=== PATIENT | male | born 1950 | race Caucasian/White ===

== ENCOUNTER 2020-09-10 07:31 | Inpatient (IN) ==
--- NOTE | 2020-08-25 13:02 | PAT Medication Instructions ---
Medication Instructions Date of Service August 25, 2020 Home Medications [place] Plus 1 cap PO HS aspirin 325 mg PO HS coQ10 (ubiquinol) 200 mg PO HS diclofenac sodium 75 mg PO DAILY PRN levothyroxine 112 mcg PO QAM Centrum Silver Men] 1 tab PO HS ASK your surgeon for instructions diclofenac sodium 75 mg PO DAILY PRN ASK your prescriber and surgeon aspirin 325 mg PO HS STOP taking 2 weeks before surgery (or as soon as possible if surgery is within 2 weeks) [place] Plus 1 cap PO HS coQ10 (ubiquinol) 200 mg PO HS Take morning of surgery With a small sip of water, OTHERWISE NOTHING TO EAT OR DRINK AFTER MIDNIGHT: levothyroxine 112 mcg PO QAM Take evening before surgery Centrum Silver Men] 1 tab PO HS Other Notes If you have any questions please call us at [phone] or [phone] or [phone] or [phone]
--- NOTE | 2020-08-26 12:35 | Anesthesiology Consultation ---
Date of Service August 26, 2020 Assessment & Plan (1) Encounter for pre-operative examination: - Per assessment on 08/26: Travel screen- Lives in [facility]. Travel to [facility] for shopping. No known COVID-19 positive contacts or cu rrent COVID-19 related symptoms. Surgeon arranging preop COVID testing. Awaiting results. - Awaiting surgeon-ordered PCP clearance (Dr. Maye Swift). - Preop EKG: New onset a. fib with RVR, consider anterolateral ischemia on preop EKG at PAT visit 08/26. Per patient, possible remote hx of a. fib that was not found on follow-up event monitor therefore no further cardiac follow-up done. Patient was asymptomatic. He was transported to [facility] ER for further evaluation. Patient given diltiazem drip. Per ER note, "Given his rapid improvement with the diltiazem and his asymptomatic nature, discussed with patient option of further observation here versus discharge home. He is from out of the area and wished to go home." He was discharged with rx for diltiazem and Eliquis. PCP and surgeon's office made aware. Surgeon's office made aware- Per PAT mitigation supervisor (Natalee), surgeon's office states they will arrange preop cardiology evaluation (in order for spinal anesthesia, will need to see if okay to discontinue Eliquis 72 hours prior to surgery from prescriber's perspective after they are further evaluated). Chart Review Chart Review: Patient seen in Pre Admission Testing Teaching & Discussion Pre-Anesthesia Teaching/Discussion Notes: Instructed NPO after midnight before surgery,except medications with 15 cc of water. Medication instructions provide d according to the PAT guidelines. History Surgery Operation Date: 09/08/20 10:30 Proposed Procedures p L3-L4 Decompression Fusion, L4-L5 Hardware Removal, Spinal Cord Monitoring - Todd Mcginnis, Height/Weight Height: 5 ft 9 in Weight: 100.4 kg Allergies Allergy/AdvReac Type Severity Reaction Status Date / Time No Known Allergies Allergy Verified 08/26/20 15:31 Medications Home Medications Medication Instructions Recorded Confirmed Last Taken coQ10 (ubiquinol) 200 mg PO QPM 08/17/20 08/26/20 Unknown levothyroxine 112 mcg PO QAM 08/17/20 08/26/20 Unknown knggdygb-dev-FV-lycopen-lutein 1 tab PO QPM 08/17/20 08/26/20 Unknown [Centrum Silver Men] apixaban [Eliquis] 5 mg PO BID #60 tab 08/26/20 Unknown diltiazem HCl [Cardizem] 60 mg PO Q8H 30 Days #90 tab 08/26/20 Unknown omega-3 fatty acids [[place] 3] 0 mg PO QPM 08/26/20 08/26/20 Unknown Past Medical History Medical History History of high blood pressure Leaky heart valve ? remote hx, no recent echo, no murmur on PAT exam Obesity Osteoarthritis Sleep apnea no device Exercise / Class Metabolic Activity II 4-5 Yardwork/Stairs/Walk up hill Past Family History Family History Brother Family history of esophageal cancer Past Surgical History Surgical History History of colonoscopy History of esophagogastroduodenoscopy (EGD) History of tooth extraction Hx of vasectomy Past Anesthesia History No Hx of Anesthesia Complications and No Family Hx of Anesthesia Complications History of PONV No Hx of PONV and No Hx of Motion Sickness Social History Smoking Status: Never smoker Do You Dip or Chew Tobacco: No Hx Alcohol Use: Yes Alcohol type: beer alcohol intake frequency: a few times a week substance use type: does not use Review of Systems Patient denies chest pain, shortness of breath, dyspnea on exertion, fever, chills, wheezing, palpitations. Physical Exam Vital Signs VITALS BP 144/100 (manual repeat 138/92) P 93- low 100's-110's on monitor TEMP 98.1 SP02 96%RA RESP 16 PHYSICAL Full neck and c-spine range of motion. Full TMJ range of motion. TMD 2.5 finger breaths Mallampati Score 3 Dentition: full dentures upper lower Lungs: clear throughout to auscultation Cardiac: heart rhythm irregular, no murmurs noted Spine: normal Carotid arteries: negative bruit Extremities: no edema Testing Laboratory Results 08/26/20 12:54 08/26/20 12:54 PT 10.6 Seconds (9.0-12.0) 08/26/20 12:54 INR 1.0 (0.9-1.1) 08/26/20 12:54 APTT 28.5 Seconds (21.0-31.0) 08/26/20 12:54 Urine Color Yellow 08/26/20 12:54 Urine Appearance Clear (Clear) 08/26/20 12:54 Urine pH 5.5 (4.5-7.5) 08/26/20 12:54 Ur Specific [place] 1.018 (1.000-1.030) 08/26/20 12:54 Urine Protein Negative (Negative) 08/26/20 12:54 Urine Glucose (UA) Negative (Negative) 08/26/20 12:54 Urine Ketones Negative (Negative) 08/26/20 12:54 Urine Nitrite Negative (Negative) 08/26/20 12:54 Ur Leukocyte Esterase Negative (Negative) 08/26/20 12:54 Blood Type O Negative 08/26/20 12:54 Antibody Screen NEGATIVE 08/26/20 12:54 08/26/20 SODIUM 138 POTASSIUM 4.1 CHLORIDE 107 CO2 27 BUN 15 CREATININE 1.23 GLUCOSE 97 Electrocardiogram Date: 08/26/20 A. fib with RVR at 117bpm. ST/TWA, consider lateral ischemia. unconfirmed report. Chest X-Ray Date: 08/26/20 Findings: + NAD FINDINGS: There is enlargement of the cardiac silhouette. No pneumothorax, pleural effusion, airspace consolidation or overt pulmonary edema. Mild eventration of the right hemidiaphragm. Bones appear grossly intact. IMPRESSION: No acute process.
[2020-08-26 13:25] LABS: Basophils # (auto) 0.03 K/uL (0-0.2); Basophils % (auto) 0.4 %; Eosinophils # (auto) 0.16 K/uL (0-0.5); Eosinophils % (auto) 2.3 %; Hemoglobin 17.3 g/dL (14.0-18.0); Immature Granulocytes # (auto) 0.01 K/uL (0.00-0.02); Immature Granulocytes % (auto) 0.1 %; Lymphocytes # (auto) 2.06 K/uL (1.2-3.4); Lymphocytes % (auto) 29.3 %; Mean Corpuscular Hemoglobin 32.8 pg (25-34); Mean Corpuscular Hgb Conc 35.3 g/dL (32-36); Mean Platelet Volume 11.9 fL (7.4-10.4); Monocytes # (auto) 0.57 K/uL (0.11-0.59); Monocytes % (auto) 8.1 %; Neutrophils % (auto) 59.8 %; Platelet Count 219 K/uL (130-400); RDW Coefficient of Variation 13.5 % (11.5-14.5); RDW Standard Deviation 45.7 fL (36.4-46.3); Red Blood Count 5.27 M/uL (4.7-6.1); White Blood Count 7.03 K/uL (4.8-10.8)
[2020-08-26 13:26] LABS: Appearance Urine Clear (Clear); Bilirubin Urine Negative (Negative); Blood Urine Negative (Negative); Color Urine Yellow; Glucose Urine UA Negative (Negative); Ketones Urine Negative (Negative); Leukocyte Esterase Urine Negative (Negative); Nitrite Urine Negative (Negative); Protein Urine Negative (Negative); Specific Gravity Urine 1.018 (1.000-1.030); Urobilinogen Urine Negative (Negative); pH Urine 5.5 (4.5-7.5)
[2020-08-26 13:36] LABS: Partial Thromboplastin Time 28.5 Seconds (21.0-31.0); Prothrombin Time 10.6 Seconds (9.0-12.0)
[2020-08-26 15:43] LABS: BUN Creatinine Ratio 12.6 (10-20); Calcium 9.4 mg/dl (8.5-10.1); Creatinine Clr Calc Pharmacy 70.8 ml/min; Est GFR (African American) 74.8; Est GFR (Non-African American) 64.6; Potassium 4.6 mmol/L (3.5-5.1)
--- NOTE | 2020-08-26 17:59 | Electrocardiogram Report ---
Test Reason : Blood Pressure : / mmHG Vent. Rate : 109 BPM Atrial Rate : 115 BPM P-R Int : 000 ms QRS Dur : 088 ms QT Int : 322 ms P-R-T Axes : 000 025 -10 degrees QTc Int : 433 ms Atrial fibrillation with rapid ventricular response Abnormal ECG When compared with ECG of 25-MAY-2010 11:47, Atrial fibrillation has replaced Sinus rhythm ST now depressed in Anterolateral leads T wave inversion now evident in Anterior leads Confirmed by Vivek Tellez ([id number]) on 08/26/2020 5:59:04 PM Referred By: Todd Mcginnis Confirmed By:Nicolás Tellez
[~2020-09-10 07:31] MED LIST: ACETAMINOPHEN 500 MG TAB PO SCH; CeleBREX 200 MG CAP PO SCH; GABAPENTIN 300 MG CAP PO SCH; LR 15ML/HR IV SCH; ceFAZolin 2000MG 2,000 MG/15 ML SYR IV SCH
[2020-09-10] MEDS ORDERED: LIDOCAINE HCL 2% 2 ML VIAL/AMP(20MG/ML) INFIL ONE (08:30)
[2020-09-10] MEDS ORDERED: NEOSTIGMINE METHYLSULFATE 1 MG/ML 10ML VIAL ONE (08:30)
[2020-09-10] MEDS ORDERED: GLYCOPYRROLATE 0.2 MG/ML VIAL ONE ×2 (08:30→13:38)
[2020-09-10] MEDS ORDERED: ONDANSETRON INJ 2 MG/ML 2 ML VIAL ONE (08:30)
[2020-09-10] MEDS ORDERED: PROPOFOL IV EMULSION 10 MG/ML 20 ML VIAL IV ONE (08:30)
[2020-09-10] MEDS ORDERED: DEXAMETHASONE SOD INJ 4 MG/ML VIAL ONE (08:30)
[2020-09-10] MEDS ORDERED: fentaNYL citrate 100 MCG/2 ML VIAL ONE (08:31)
[2020-09-10] MEDS ORDERED: MIDAZOLAM HCL 1 MG/ML 2ML VIAL ONE (08:31)
--- NOTE | 2020-09-10 08:50 | History & Physical Bridge Note ---
Date of Service September 10, 2020 History & Physical Bridge Note I have examined the patient, reviewed the History & Physical and in the interval since the performance of the History & Physical I have noted the following changes of clinical significance: no changes noted
--- NOTE | 2020-09-10 08:51 | History & Physical Report ---
Date of Service September 10, 2020 Assessment & Plan (1) Neurogenic claudication due to lumbar spinal stenosis: Admission and Anticipated Discharge Date Admission Date: L3-L4 decompression fusion, L4-L5 hardware removal History of Present Illness Chief Complaint: Back and leg pain Primary Care Provider: Maye Gomez This is a 70-year-old male who presents with chronic persistent back and leg pain. Failing course of nonoperative care is here for surgical intervention. Allergies Allergy/AdvReac Type Severity Reaction Status Date / Time No Known Allergies Allergy Verified 09/10/20 08:14 Home Medications Home Medications Medication Instructions Recorded Confirmed Type coQ10 (ubiquinol) 200 mg PO QPM 08/17/20 09/10/20 History levothyroxine 112 mcg PO QAM 08/17/20 09/10/20 History ekdewvrk-diw-VX-lycopen-lutein 1 tab PO QPM 08/17/20 09/10/20 History [Centrum Silver Men] apixaban [Eliquis] 5 mg PO BID #60 tab 08/26/20 09/10/20 Rx diltiazem HCl [Cardizem] 60 mg PO Q8H 30 Days #90 tab 08/26/20 09/10/20 Rx omega-3 fatty acids [[place] 3] 0 mg PO QPM 08/26/20 09/10/20 History aspirin 325 mg PO DAILY 09/10/20 09/10/20 History Past Med/Surg History Medical History History of high blood pressure Leaky heart valve ? remote hx, no recent echo, no murmur on PAT exam Obesity Osteoarthritis Sleep apnea no device Surgical History History of colonoscopy History of esophagogastroduodenoscopy (EGD) History of tooth extraction Hx of vasectomy Family History Brother Family history of esophageal cancer Social History Smoking Status: Never smoker Second Hand Exposure: Yes (IN THE PAST); Do You Dip or Chew Tobacco: No; Tobacco Cessation Education Requested by Patient: No Hx Alcohol Use: Yes Alcohol type: beer Preferred Language: Bahraini Body Team Member Required: No Beliefs That Will Affect Care: None Current Living Situation: Spouse Feels Safe at Home: Yes Safety Concerns: Feels Safe At This Time Assistive Devices: Denture - Upper, Denture - Lower and Glasses Assistive Devices Comment: READING GLASSES Physical Exam Physical Exam: Patient is alert and oriented Heart regular rate and rhythm Lungs clear to auscultation Results & Data ([facility]) Vital Signs (Past 12 Hours) Vital Signs Temp Pulse Resp BP Pulse Ox 09/10/20 08:22 36.6 C 99 H 18 167/90 H 98
[2020-09-10] MEDS ORDERED: ePHEDrine sulfate 50 MG/ML AMP IV PRN (09:00)
[2020-09-10] MEDS ORDERED: ONDANSETRON INJ 2 MG/ML 2 ML VIAL IV PRN ×2 (09:00→13:36)
[2020-09-10] MEDS ORDERED: ATROPINE SULFATE 0.1 MG/ML 10ML SYR IV PRN (09:00)
[2020-09-10] MEDS ORDERED: BUPIVACAINE/EPINEPHRINE 0.25% 1:200,000 30 ML VIAL ONE (09:16)
[2020-09-10] MEDS ORDERED: BACITRACIN INJ 50,000 UNIT VIAL ONE ×2 (09:16)
[2020-09-10] MEDS ORDERED: PHENYLEPHRINE 100MCG/ML 5ML SYR ONE (10:27)
[2020-09-10] MEDS ORDERED: ePHEDrine sulfate 50 MG/ML SYR ONE (10:27)
[2020-09-10] MEDS ORDERED: ROCURONIUM BROMIDE 10 MG/ML 5 ML VIAL IV ONE (10:27)
[2020-09-10] MEDS ORDERED: FLOSEAL HEMOSTATIC MATRIX 10ML TOP ONE (10:29)
[2020-09-10] MEDS ORDERED: PHENYLEPHRINE HCL 10 MG/ML VIAL ONE (10:58)
--- NOTE | 2020-09-10 11:32 | Operative Report ---
Post Operative Report Pre & Post Diagnosis Operation Date: 09/08/20 12:40 <No data on this case meets the specified criteria> Operation Date: 09/10/20 09:05 Pre-Op Diagnosis: Lumbar spinal stenosis with neurogenic claudication Post-Op Diagnosis: Same I identified the patient and participated in the time-out.: Yes Procedure Operation Date: 09/08/20 12:40 <No data on this case meets the specified criteria> Operation Date: 09/10/20 09:05 Actual Procedures #1 removal of instrumentation L4-L5. #2 exploration of fusion L4-5 per #3 lumbar decompression bilateral medial facetectomies and foraminotomies L2-3 L3- 4. #4 posterior spinal fusion L3-4. #5 placement posterior instrumentation L3- 4. #6 interbody fusion L3-4 per #7 placement of peek cage 12 x 26 mm at L3-4. #8 placement locally harvested morselized autograft in the posterior lateral gutters. 9 placement infuse collagen sponge, master graft in the posterior lateral gutters and ostial amp and interbody space. Surgeon Todd Mcginnis, DO Injection Molder Kevan Vázquez Estimated Blood Loss 150 Findings See Below Patient is 5 foot 9 inches tall weighing over 99 kg a BMI in excess of 32. Patient's body habitus did add significant technical difficulty requiring her deepest retractors longus instruments in order to perform his procedure. This at least 25% increase in the operative time. Specimens None Indications This is a 70-year-old male who presents with above-mentioned diagnosis after failing extensive course of nonoperative care is here for surgical invention. Description of Procedure Patient was met with identified informed consent obtained. Patient was then taken to the operative suite underwent intubation placed in a prone position the [place] table top Mauro frame. All bony prominences well-padded eyes inspected to ensure no external pressure placed upon the. This point the lumbar spine is prepped and draped in a sterile fashion. Sharp dissection with the assistance of cartilage performed down to and exposing the lamina and transverse processes of L3 and instrumentation at L4-L5 bilaterally. And then proceeded move the hardware bilaterally explore the fusion mass noting it to be mature and intact. And then performed a complete laminectomy of L3 partial laminectomy of L2 including bilateral medial facetectomies and foraminotomies addressing severe spinal stenosis. Pedicle screws were then placed in L3 and L4 bilaterally with assistance of fluoroscopy and the proper sized stanley placed. By way of a transforaminal approach on the left complete discectomy was performed endplates curetted to subcortical bleeding bone and a 12 x 26 mm peek cage filled with osteobone graft tapped in position. The rods were then locked in final position bilaterally. The transverse processes of L3 and L4 were burred to subcortical any bone. Infuse collagen sponge master graft local autograft was placed in the posterior gutters. 15 round KEITH drain inserted. Incision was then closed with 1 Vicryl in the fascia 2-0 Vicryl subcutaneously and 4 Monocryl for final skin closure. Steri-Strip sterile dressings placed. Patient waken taken PACU stable condition. Please note spinal cord monitoring was utilized that the procedure no changes noted. Lastly Kevan Vázquez was present for the entire surgery involved in patient positioning complex portions of the surgery and fascial closure. I attest to the content of the Intraoperative Record and any orders documented therein. Any exceptions are noted below.
--- NOTE | 2020-09-10 11:56 | Fluoroscopy Report ---
FL lumbar spine 2-3V CLINICAL HISTORY: L3-L4 DECOMPRESSION AND FUSION L4-5 HW REMOVAL COMPARISON STUDY: 05/26/2010 FLUOROSCOPY TIME: 13 seconds. NUMBER OF FLUOROSCOPIC IMAGES: 2 FINDINGS: There is again evidence for an L4-5 discectomy and interbody fusion. There is now evidence for an L3-4 discectomy and interbody fusion. The L5 pedicle screws have been removed. L3 pedicle scre ws have been placed. IMPRESSION: 1. Postsurgical changes of L4-5 hardware removal 2. Postsurgical changes of an L3-4 spinal decompression and fusion with posterior pedicle screw fixat ion ACT 112: Negative or not required by law. Electronically signed by: Romain rAevalo M.D. 09/10/2020 11:55 AM
[2020-09-10] MEDS: fentaNYL citrate 100 MCG/2 ML VIAL IV PRN ×3 (12:02→12:13)
[2020-09-10] MEDS ORDERED: LARYING-O-JET KIT (LTA) ONE (12:04)
[2020-09-10] MEDS ORDERED: HYDROmorphone INJ 1 MG/ML SYRINGE ONE (12:12)
[2020-09-10] MEDS: HYDROmorphone INJ 1 MG/ML SYRINGE IV PRN ×4 (12:13→12:35)
--- NOTE | 2020-09-10 12:38 | Anesthesiology Progress Note ---
Date of Service September 10, 2020 Anesthesia Post Procedure Vital Signs Vital Signs: Temp Pulse Pulse Resp BP BP Pulse Ox 09/10/20 12:35 98.1 F 76 16 110/82 96 09/10/20 12:25 80 16 119/78 95 09/10/20 12:15 69 16 134/86 99 09/10/20 12:05 80 16 123/88 99 09/10/20 11:57 97.3 F L 93 H 16 144/79 H 99 09/10/20 08:22 97.9 F 99 H 18 167/90 H 98 Pain Intensity Posterior Back: Pain Intensity: 6 Transfer of Care Handoff Completed per policy Notes Mental Status: alert / awake / arousable and participated in evaluation Patient Amnestic to Procedure: Yes Nausea / Vomiting: adequately controlled Pain: adequately controlled Airway Patency, RR, SpO2: stable & adequate BP & HR: stable & adequate Hydration State: stable & adequate Anesthetic Complications: no major complications apparent and Pt Satisfied with anesthetic care
[2020-09-10] MEDS ORDERED: MAGNESIUM HYDROXIDE SUSP 30 ML UDC PO PRN (13:36)
[2020-09-10] MEDS ORDERED: HYDROmorphone INJ 0.5 MG/0.5 ML SYR IV PRN (13:36)
[2020-09-10] MEDS ORDERED: LORazepam 0.5 MG/1 ML VIAL IV PRN (13:36)
[2020-09-10] MEDS ORDERED: hydrOXYzine HCl 25 MG TAB PO PRN (13:36)
[2020-09-10] MEDS ORDERED: DO NOT ADMINISTER FLU VACCINE PRN (13:36)
[2020-09-10] MEDS ORDERED: diphenhydrAMINE Capsule 25 MG CAP PO PRN (13:36)
[2020-09-10] MEDS ORDERED: NALOXONE HCL 0.4 MG/1 ML VIAL/CARP IV PRN (13:36)
[2020-09-10] MEDS ORDERED: ONDANSETRON 4 MG OD TAB PO PRN (13:36)
[2020-09-10] MEDS ORDERED: traMADol HCL 50 MG TABLET PO PRN (13:36)
[2020-09-10] MEDS ORDERED: ACETAMINOPHEN 1,000 MG/100 ML VIAL IV PRN (13:36)
[2020-09-10] MEDS ORDERED: ALUMINUM/MAGNESIUM SUSP 30 ML UDC PO PRN (13:36)
[2020-09-10] MEDS ORDERED: METOCLOPRAMIDE HCL INJ 5 MG/ML 2 ML VIAL IV PRN (13:36)
[2020-09-10] MEDS ORDERED: ACETAMINOPHEN 500 MG TAB PO PRN (13:36)
[2020-09-10] MEDS ORDERED: FAMOTIDINE 20 MG TAB PO PRN (13:36)
[2020-09-10] MEDS ORDERED: HYDROmorphone INJ 1 MG/ML SYRINGE IV PRN (13:36)
[2020-09-10] MEDS ORDERED: SOD PHOSPHATE/SOD BIPHOSPHATE ENEMA 132 ML BTL PR PRN (13:36)
[2020-09-10] MEDS ORDERED: PROMETHAZINE HCL 12.5 MG in SODIUM CHLORIDE 0.9% 50 ML IV PRN (13:36)
[2020-09-10] MEDS ORDERED: bisacodyL 10 MG SUPP PR PRN (13:36)
[2020-09-10] MEDS ORDERED: DO NOT ADMINISTER PNEUMOCOCCAL VACCINE PRN (13:36)
[2020-09-10] MEDS ORDERED: LORazepam 0.5 MG TAB PO PRN (13:36)
[2020-09-10] MEDS ORDERED: dilTIAZem HCl 60 MG TAB PO SCH (14:00)
[2020-09-10] MEDS: SODIUM CHLORIDE 0.9% 1000ML 1,000 ML IV SCH ×2 (14:10→20:45)
[2020-09-10] MEDS ORDERED: Nursing to Pharmacy Communication SCH (16:00)
[2020-09-10] MEDS: dilTIAZem HCl 60 MG TAB PO SCH (16:22)
--- NOTE | 2020-09-10 16:45 | Hospitalist Consultation ---
Date of Consultation September 10, 2020 Assessment & Plan (1) Neurogenic claudication due to lumbar spinal stenosis: Patient is status post decompression fusion L3-4 with hardware removal removal L4-5 doing well postoperatively has a drain in place (2) Afib: Patient typically on diltiazem 60 every 8 and Eliquis twice daily. This was appropriately held. Patient also takes an aspirin 325 a day which also was held. Patient was previously recommended to escalate from diltiazem 60 every 8 till extended release diltiazem 240 a day patient is in agreement to do this however his blood pressure is slightly low his blood pressure rebounds in the postoperative. It would be appropriate to escalate his dose at the time of discharge. (3) Hypothyroidism: Synthroid is continued at 112 a day (4) DVT prophylaxis: DVT prophylaxis with SCDs given his recent spinal surgery his drain is still in place likely once his drain is pulled 12 to 24 hours later he will repeat his Eliquis therapy History of Present Illness Attending Physician: Todd Mcginnis, DO History of Present Illness Patient is seen postoperatively for an L3-4 decompression and fusion, L4-[address] Mcginnis. Patient was doing well postoperatively. Patient had preoperative cardiac clearance as he initially had new onset A. fib or may be a recurrence of paroxysmal A. fib with preanesthesia testing clinic and then went to see cardiology in [facility] and there were he had a stress test was negative and was recommended to escalate his diltiazem from 60 every 8 hours to 240 the extended release. However the patient did not do this as he did not feel a prescription was called in. Patient no complaints or problems at present distal sensation of his legs no complaints of chest pain or sensation of palpitations Allergies Allergy/AdvReac Type Severity Reaction Status Date / Time No Known Allergies Allergy Verified 09/10/20 08:14 Home Medications Home Medications Medication Instructions Recorded Confirmed Type coQ10 (ubiquinol) 200 mg PO QPM 08/17/20 09/10/20 History levothyroxine 112 mcg PO QAM 08/17/20 09/10/20 History rqeyooxn-udk-LS-lycopen-lutein 1 tab PO QPM 08/17/20 09/10/20 History [Centrum Silver Men] apixaban [Eliquis] 5 mg PO BID #60 tab 10/08/20 10/23/20 Rx diltiazem HCl [Cardizem] 60 mg PO Q8H 30 Days #90 tab 08/26/20 09/10/20 Rx omega-3 fatty acids [[place] 3] 0 mg PO QPM 08/26/20 09/10/20 History aspirin 325 mg PO DAILY 09/10/20 09/10/20 History Patient History Medical History (Updated 09/10/20 @ 16:45 by Edenilson Pereira MD) Afib History of high blood pressure Leaky heart valve ? remote hx, no recent echo, no murmur on PAT exam Obesity Osteoarthritis Sleep apnea no device Surgical History History of colonoscopy History of esophagogastroduodenoscopy (EGD) History of tooth extraction Hx of vasectomy Family History Brother Family history of esophageal cancer Social History Smoking Status: Never smoker Second Hand Exposure: Yes (IN THE PAST); Do You Dip or Chew Tobacco: No; Tobacco Cessation Education Requested by Patient: No Hx Alcohol Use: Yes Alcohol type: beer Preferred Language: Estonian Net Applications Developer Required: No Beliefs That Will Affect Care: None Current Living Situation: Spouse Feels Safe at Home: Yes Safety Concerns: Feels Safe At This Time Assistive Devices: Glasses and Walker Assistive Devices Comment: READING GLASSES Review of Systems Review of Systems: Mild distress and fatigue no headache, blurry or double vision no speech or swallowing issues no chest pain, pressure or palpitations no shortness of breath, cough or wheezes no abdominal pain, nausea or vomiting, diarrhea or constipation no dysuria, hematuria or frequency no focal joint pain or swelling Patient is some back discomfort postoperatively no bruising, bleeding or rashes no focal signs of weakness or numbness or altered sensation no complaints of anxiety or depression. Physical Exam Physical Exam: The patient appeared well nourished and normally developed. Vital signs as documented. Head exam is normocephalic atraumatic no scleral icterus Neck is without JVD, thyromegaly, or carotid bruits. Lungs are clear to auscultation, no focal loss of breath sounds Cardiac exam, Rhythm is regular. (Although history of his atrial fib). No murmurs, rubs or gallops. Abdominal exam reveals normal bowel sounds, soft non tender, no masses Extremities are nonedematous and both pedal pulses are present Neurologic exam is alert and oriented, no focal loss of strength or sensation Skin is without bruises or rashes Psychologically is without concerns for anxiety or depression. Results & Data Results & Data ([facility]) Vital Signs (Past 12 Hours) Vital Signs Temp Pulse Pulse Resp BP BP Pulse Ox 09/10/20 16:19 95 H 21 107/62 95 09/10/20 15:46 89 19 106/66 93 09/10/20 15:16 98.2 F 76 19 112/69 95 09/10/20 14:32 97.3 F L 92 H 18 121/81 94 09/10/20 13:52 97.2 F L 81 15 124/83 96 09/10/20 13:20 97.5 F L 82 16 117/81 96 09/10/20 12:55 97.9 F 69 12 116/73 96 09/10/20 12:45 78 16 112/84 96 09/10/20 12:35 98.1 F 76 16 110/82 96 09/10/20 12:25 80 16 119/78 95 09/10/20 12:15 69 16 134/86 99 09/10/20 12:05 80 16 123/88 99 09/10/20 11:57 97.3 F L 93 H 16 144/79 H 99 09/10/20 08:22 97.9 F 99 H 18 167/90 H 98 PG Care Time/CCT Total # of Minutes Spent Total Time Spent with Patient: Total time spent is greater than 50% in coordination of care (as documented) at patient's floor/unit and/or counseling patient: Coding Level of Care Code 66665 Inpt Consult Level 3 Diagnoses Neurogenic claudication due to lumbar spinal stenosis M48.062 Afib I48.91 Hypothyroidism E03.9 DVT prophylaxis Z29.9
[2020-09-10] MEDS: ceFAZolin 2000MG 2,000 MG/15 ML SYR IV SCH (17:19)
[2020-09-10] MEDS: DOCUSATE SODIUM/SENNA 50/8.6MG TAB PO SCH (20:46)
[2020-09-10] MEDS: CEROVITE ADV FORMULA TAB PO SCH (20:46)
[2020-09-10] MEDS ORDERED: NON-FORMULARY MEDICATION (Coq10 (Ubiquinol) 200 MG) PO SCH (21:00)
[2020-09-10] MEDS: oxyCODONE HCL IR 5 MG TAB (IMMEDIATE RELEASE) PO PRN (22:23)
[2020-09-11] MEDS: dilTIAZem HCl 60 MG TAB PO SCH ×2 (00:30→07:59)
[2020-09-11] MEDS: ceFAZolin 2000MG 2,000 MG/15 ML SYR IV SCH (01:18)
[2020-09-11] MEDS: oxyCODONE HCL IR 5 MG TAB (IMMEDIATE RELEASE) PO PRN ×3 (03:00→23:11)
[2020-09-11] MEDS: SODIUM CHLORIDE 0.9% 1000ML 1,000 ML IV SCH (03:30)
[2020-09-11] MEDS: LEVOTHYROXINE SODIUM 112 MCG TABLET PO SCH (05:44)
[2020-09-11] MEDS: POLYETHYLENE (MIRALAX) 17 GM PACK PO SCH ×4 (05:44→23:07)
[2020-09-11] MEDS: ASPIRIN 325 MG ECTAB PO SCH (07:59)
[2020-09-11 09:28] LABS: Hematocrit (blood only) 41.4 % (42-52); Hemoglobin 14.2 g/dL (14.0-18.0); Immature Granulocytes # (auto) 0.03 K/uL (0.00-0.02); Immature Granulocytes % (auto) 0.2 %; Lymphocytes # (auto) 1.06 K/uL (1.2-3.4); Lymphocytes % (auto) 6.8 %; Mean Corpuscular Hemoglobin 31.8 pg (25-34); Mean Corpuscular Hgb Conc 34.3 g/dL (32-36); Mean Corpuscular Volume 92.8 fL (80-100); Mean Platelet Volume 11.7 fL (7.4-10.4); Monocytes # (auto) 1.08 K/uL (0.11-0.59); Monocytes % (auto) 6.9 %; Neutrophils # (auto) 13.43 K/uL (1.4-6.5); Neutrophils % (auto) 86.1 %; Platelet Count 234 K/uL (130-400); RDW Coefficient of Variation 13.3 % (11.5-14.5); RDW Standard Deviation 45.5 fL (36.4-46.3); Red Blood Count 4.46 M/uL (4.7-6.1)
[2020-09-11 09:56] LABS: BUN Creatinine Ratio 12.5 (10-20); Calcium 8.8 mg/dl (8.5-10.1); Creatinine Clr Calc Pharmacy 69.9 ml/min; Est GFR (African American) 74.1; Est GFR (Non-African American) 63.9; Potassium 4.3 mmol/L (3.5-5.1)
--- NOTE | 2020-09-11 10:02 | Hospitalist Progress Note ---
Date of Service September 11, 2020 Assessment & Plan (1) Neurogenic claudication due to lumbar spinal stenosis: * POD #1 s/p decompression fusion L3-4 with hardware removal removal L4-5. EBL 150cc. 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 * BPs were low post-op but currently 132/96 and we will discontinue short acting and initiate 240mg ER daily to be continued at discharge * Continue to monitor (3) Hypothyroidism: * Synthroid is continued at 112 a day (4) DVT prophylaxis: * SCDs * chemical contraindicated -- Eliquis to resume 09/13 per ortho (has not received in 4 days) Dispo: possible d/c in next day or two per primary service Thank you for allowing hospitalist group to participate in the care of Mr. Jansen. Hospitalist will follow along with chart checks to ensure BP controlled with ordered medication switches but will sign off at this time. Please call with any questions/concerns. Admission and Anticipated Discharge Date Admission Date: September 10, 2020 Supervising Physician Co-Signing Physician Notes PA Supervision Note: I did not personally see or examine the patient today, but I verified all guzman points of DAE Reid's assessment and plan with the following exceptions/additions: None Subjective Patient evaluated this afternoon. Doing well. Some pain but managed with ordered medications. Has walked halls several times. Passing gas but no BM. Does have some cramping but got some more stool softener and attempting to have BM. Discussed diltiazem and switching to ER. He believes he may have gotten this morning but I stated I would verify and if possible switch to the ER due to better BPs. Plans to continue to watch KEITH drain output and resume Eliquis on Sunday per Dr. Mcginnis unless any issues before that time. Had a monitor as outpatient for a month previously which did not have any episodes of afib. Initially noticed during a sleep study but had been unable to tolerate CPAP mask. Had surgery 10 years ago with toretti. No fever, chill, chest pain, shortness of breath, abdominal pain, nausea, vomit ing, dysuria at this time. Review of Systems Review of Systems: All systems reviewed & are unremarkable except as noted in HPI & below Physical Exam Constitutional: WD/WN, vitals as above no acute distress Eyes: + anicteric sclerae; no eyelid abnormality Neck: normal visual inspection and trachea midline Respiratory: normal respiratory effort, lungs clear to auscultation Cardiovascular: RRR, no murmur, no edema Gastrointestinal (Abdomen): normal bowel sounds, soft, nontender, no hepatosplenomegaly Inspection/Auscultation: + abdomen distended Musculoskeletal: dressing to lumbar spine c/d/i. KEITH with minimal blood drainage noted NVI equal strength pulses equal Skin: warm, dry Neurologic: PERRL, EOMI, accommodation nl, no face palsy, no dysarthria Psychiatric: Orientation: alert and oriented x 3 Lymphatic: no cervical or axillary lymphadenopathy Results & Data Results & Data ([facility]) Vital Signs (Past 12 Hours) Vital Signs Temp Pulse Resp BP Pulse Ox 09/11/20 07:05 36.5 C 92 H 16 112/72 94 09/11/20 02:11 36.5 C 97 H 16 116/72 93 09/10/20 23:49 36.5 C 98 H 18 113/70 92 Laboratory Results 09/11/20 09/11/20 09/11/20 Range/Units 08:59 08:59 08:59 WBC 15.60 H (4.8-10.8) K/uL RBC 4.46 L (4.7-6.1) M/uL Hgb 14.2 (14.0-18.0) g/dL Hct 41.4 L (42-52) % MCV 92.8 (80-100) fL MCH 31.8 (25-34) pg MCHC 34.3 (32-36) g/dL RDW Std Deviation 45.5 (36.4-46.3) fL RDW Coeff of Yanelis 13.3 (11.5-14.5) % Plt Count 234 (130-400) K/uL MPV 11.7 H (7.4-10.4) fL Immature Gran % (Auto) 0.2 % Neut % (Auto) 86.1 % Lymph % (Auto) 6.8 % [place] % (Auto) 6.9 % Eos % (Auto) 0.0 % Baso % (Auto) 0.0 % Neut # (Auto) 13.43 H (1.4-6.5) K/uL Lymph # (Auto) 1.06 L (1.2-3.4) K/uL [place] # (Auto) 1.08 H (0.11-0.59) K/uL Eos # (Auto) 0.00 (0-0.5) K/uL Baso # (Auto) 0.00 (0-0.2) K/uL Immature Gran # (Auto) 0.03 H (0.00-0.02) K/uL Sodium 138 (136-145) mmol/L Potassium 4.3 (3.5-5.1) mmol/L Chloride 106 (98-107) mmol/L Carbon Dioxide 28 (21-32) mmol/L Anion Gap 4.0 (3-11) BUN 14 (7-18) mg/dl Creatinine 1.16 (0.6-1.4) mg/dl Est Cr Clr Drug Dosing 69.9 ml/min Est GFR ( Amer) 74.1 Est GFR (Non-Af Amer) 63.9 BUN/Creatinine Ratio 12.5 (10-20) Glucose 121 H (70-99) mg/dl Calcium 8.8 (8.5-10.1) mg/dl Hepatitis C Ab Screen Neg (Neg) PG Care Time/CCT Total # of Minutes Spent Total Time Spent with Patient: Total time spent is greater than 50% in coordination of care (as documented) at patient's floor/unit and/or counseling patient: Coding Level of Care Code 01171 Subseq Hosp Care Lvl 2 Diagnoses Neurogenic claudication due to lumbar spinal stenosis M48.062 Afib I48.91 Hypothyroidism E03.9 DVT prophylaxis Z29.9
--- NOTE | 2020-09-11 10:38 | Orthopedic Progress Note ---
Date of Service September 11, 2020 Assessment & Plan (1) Neurogenic claudication due to lumbar spinal stenosis: Admission and Anticipated Discharge Date Admission Date: September 10, 2020 At this time continue physical therapy monitor KEITH output anticipate discharge home in the next day or so. Subjective Back pain controlled leg pain improved. Physical Exam Physical Exam: Patient is in the chair at the bedside is good strength testing. Appears comfortable. Results & Data ([facility]) Vital Signs (Past 12 Hours) Vital Signs Temp Pulse Resp BP Pulse Ox 09/11/20 07:05 36.5 C 92 H 16 112/72 94 09/11/20 02:11 36.5 C 97 H 16 116/72 93 09/10/20 23:49 36.5 C 98 H 18 113/70 92
[2020-09-11] MEDS: DEXAMETHASONE SOD PHOSPHATE 8 MG in SYRINGE 0 ML IV SCH (11:36)
--- NOTE | 2020-09-11 12:39 | Anesthesiology Progress Note ---
Date of Service September 11, 2020 Anesthesia Post Procedure Vital Signs Vital Signs: Temp Pulse Pulse Pulse Resp BP BP 09/11/20 07:05 36.5 C 92 H 16 112/72 09/11/20 02:11 36.5 C 97 H 16 116/72 09/10/20 23:49 36.5 C 98 H 18 113/70 09/10/20 19:00 36.6 C 95 H 18 114/74 09/10/20 16:19 95 H 21 107/62 09/10/20 15:46 89 19 106/66 09/10/20 15:16 36.8 C 76 19 112/69 09/10/20 14:32 36.3 C L 92 H 18 121/81 09/10/20 13:52 36.2 C L 81 15 124/83 09/10/20 13:20 36.4 C L 82 16 117/81 09/10/20 12:55 36.6 C 69 12 116/73 09/10/20 12:45 78 16 112/84 Pulse Ox 09/11/20 07:05 94 09/11/20 02:11 93 09/10/20 23:49 92 09/10/20 19:00 93 09/10/20 16:19 95 09/10/20 15:46 93 09/10/20 15:16 95 09/10/20 14:32 94 09/10/20 13:52 96 09/10/20 13:20 96 09/10/20 12:55 96 09/10/20 12:45 96 Pain Intensity Posterior Back: Pain Intensity: 3 Transfer of Care Handoff Completed per policy Notes Mental Status: alert / awake / arousable and participated in evaluation Patient Amnestic to Procedure: Yes Nausea / Vomiting: adequately controlled Pain: adequately controlled Airway Patency, RR, SpO2: stable & adequate BP & HR: stable & adequate Hydration State: stable & adequate Anesthetic Complications: no major complications apparent and Pt Satisfied with anesthetic care
[2020-09-11] MEDS: dilTIAZem ER 120 MG CAPCR PO SCH (15:02)
[2020-09-11] MEDS: CEROVITE ADV FORMULA TAB PO SCH (20:39)
[2020-09-11] MEDS: DOCUSATE SODIUM/SENNA 50/8.6MG TAB PO SCH (20:43)
[2020-09-12] MEDS: POLYETHYLENE (MIRALAX) 17 GM PACK PO SCH (05:50)
[2020-09-12] MEDS: LEVOTHYROXINE SODIUM 112 MCG TABLET PO SCH (05:50)
[2020-09-12] MEDS: DEXAMETHASONE SOD PHOSPHATE 8 MG in SYRINGE 0 ML IV SCH (08:46)
[2020-09-12] MEDS: dilTIAZem ER 120 MG CAPCR PO SCH (08:46)
[2020-09-12] MEDS: ASPIRIN 325 MG ECTAB PO SCH (08:46)
[2020-09-12] MEDS: oxyCODONE HCL IR 5 MG TAB (IMMEDIATE RELEASE) PO PRN ×2 (08:53→11:05)
--- NOTE | 2020-09-12 10:43 | Discharge Summary ---
Date of Service September 12, 2020 Admission HPI Per Admitting Provider This is a 70-year-old male who presents with chronic persistent back and leg pain. Failing course of nonoperative care is here for surgical intervention. Principal Diagnosis Lumbar spinal stenosis with neurogenic claudication Discharge Data Allergies Allergy/AdvReac Type Severity Reaction Status Date / Time No Known Allergies Allergy Verified 09/10/20 08:14 Consultations 09/10/20 13:36 Consult Case Management - Discharge Planning Routine Consult Hospitalist Routine Procedures Performed Operation Date: 09/08/20 12:40 <No data on this case meets the specified criteria> Operation Date: 09/10/20 09:05 Actual Procedures p L3-L4 Decompression and Fusion, L4-L5 Hardware Removal, Spinal Cord Monitoring(Not Applicable) - Todd Mcginnis DO Ordered Studies 09/10/20 09:05 FL fluoroscopy <1hr Routine FL lumbar spine 2-3V Routine Hospital Course (1) Neurogenic claudication due to lumbar spinal stenosis: Patient underwent lumbar decompression fusion tolerated this well was taken to orthopedic for postoperative. Postop day 1 he was up and ambulating progressed to postop day #2. Pain well controlled. Excellent strength testing. Subsequently discharged home. Discharge orders and instruction for chart for further review. Total Time Total Time Spent Total Time Spent (In Minutes): 20 minutes Discharge Plan Discharge Items Patient Disposition: Home - Self-Care Reason For Visit: Thoracic Thoraculumbar Lumbosacral Disc Disorder Discharge Diagnosis: Lumbar spinal stenosis with neurogenic claudication Activity: As commented below Non-emergency contact: Primary Care Provider Call non-emergency contact if: you have any medication questions Follow-up/Referrals: Maye Gomez D.O. [Primary Care Provider] - Diet: Regular Addtl Attending Provider Instructions: ACTIVITY RECOMMENDATIONS: SELF CARE INSTRUCTIONS AFTER THORACIC/LUMBAR FUSIONS 1. You may walk to your tolerance. It is good exercise for your legs and back. Expect some back and intermittent leg aches and pains. 2. You may perform "counter-top" level activities (make a sandwich, lorraine with a project, etc.). 3. No bending or lifting of more than 10 pounds or back twisting of any nature (roll like a log when turning in bed). 4. You may ride in a car for 20-30 minutes at a time. No driving until after your first visit with your doctor. 5. Frequent changes of position and restricting sitting to 30 minutes at a time will help limit the amount of back spasms and stiffness you may experience. 6. You may discontinue the use of ambulatory aids (cane, crutches, etc.) once your strength and confidence allow. 7. You may veterinarian small animal the shower and let water strike your incision when you arrive home at least once daily. Do not take a tub bath, sit in a hot tub or go into a swimming pool until after your first recheck in the office. SPECIAL CARE INSTRUCTIONS: VERY IMPORTANT TO READ AND REVIEW A. Your surgical incision has been closed with a cosmetic suture under the skin that will dissolve in about 6 weeks. In 14 days, you can use a pair of clean scissors and cut the suture that is left outside of the skin at the ends of your incision. 1. The small skin tapes can be removed 7 days after surgery if they have not fallen off by that point. 2. You may keep the wound open to air as much as possible to promote healing after post-op day number 5 unless told otherwise by your doctor. 3. If you think the wound looks like it is becoming infected (redness or worsening drainage) and/or you are experiencing fever, chill or worsening back pain and muscle spasms, contact the office so that we may evaluate you as soon as possible. B. Complications are uncommon, but please contact us if you have any signs or symptoms of: 1. wound infection (fever higher than 102.5 degrees F, redness, separation of wound, drainage, or increasing pain from the incision) 2. blood clots in legs (pain, swelling, redness and warmth in legs) 3. urinary tract infection (fever higher than 102.5 degrees F, burning upon urination or increased frequency of urination) 4. nerve problems (inability to walk on your toes or heels, numbness, loss of bowel or bladder control) 5. any other symptoms that concern you C. Please call the office at if you have any concerns or questions about your operation or recovery. D. No smoking! Smoking drastically decreases the chance of a solid fusion. E. Do not take any anti-inflammatory medications (Indocin, Advil, Motrin, Aspirin, Naprosyn, etc.) as these may inhibit the chance of a solid fusion. Tylenol is okay to take for pain. MANAGING PAIN AFTER SPINAL SURGERY 1. Narcotic medication is intended for short-term use and will be provided for surgical pain. Surgical pain usually lasts for a period of 4-6 weeks. Narcotic medication includes Percocet, Vicodin, Darvocet, Tylenol #3 or Lortab. 2. Longer-term pain is more appropriately treated with non-narcotic medication such as Tylenol ES. 3. Muscle spasm is not appropriately treated with narcotics. Muscle relaxers such as Soma, Flexeril or Skelaxin can be used along with Tylenol ES. 4. Remember that we all live with some "aches and pains". This is not unusual or uncommon after an injury or as we get older. a. Back pain is expected and may include muscle spasms for 4 to 6 weeks after surgery. The pain should gradually improve. If the pain worsens for no apparent reason, please contact the office. b. Intermittent leg pain may also be experienced and should not be concerned about unless it worsens for no apparent reason. If so, please contact the office. 5. We will provide appropriate medication within the normal guidelines of their prescribed use. We will also be very cautious and aware of potential abuse and extended duration of patients' medication needs. a. Pain medications are for your comfort and to assist with sleep and rest so that the tissue can heal. They are not provided in order to return to normal activity and should not be used through the day. To do so or worsening pain at night can result from ongoing tissue damage and development of tolerance to the prescribed medicine. 6. Please allow 2-3 days to process refills. Prescriptions will not be mailed but must be picked up at the office. FOLLOW UP VISIT: Keep your scheduled follow-up appointment. Any questions, please call the office at . Addtl Record Press Supervisor Provider Instructions: You have been transitioned to diltiazem extended release as previously recommended by your health and human performance professor. This should be taken instead of your 80mg every 8 hours and is to be taken as follows: * Diltiazem ER 240mg PO by mouth daily Please follow up with your health and human performance professor/PCP further further management of blood pressure if remains elevated at outpatient visits. It has been a pleasure being a part of the medical team providing for you while you have been in the hospital. Take care! Pending Studies at Discharge: No Stand-Alone Forms: [facility], Smoking Cessation Medications and DC Order Prescriptions: New tramadol 50 mg tablet 50 mg PO Q6H PRN (Reason: pain, moderate) Qty: 20 RF: 0 oxycodone 5 mg tablet 5 mg PO Q6H PRN (Reason: pain, severe) Qty: 20 RF: 0 diltiazem HCl [Taztia XT] 120 mg Capsule,Extended Release 24 Hr 240 mg PO QAM 30 Days Qty: 60 RF: 0 Continued omega-3 fatty acids Capsule 0 mg PO QPM RF: 0 Eliquis 5 mg tablet 5 mg PO BID Qty: 60 RF: 0 levothyroxine 112 mcg Tablet 112 mcg PO QAM RF: 0 coQ10 (ubiquinol) 200 mg Capsule 200 mg PO QPM RF: 0 Centrum Silver Men 300-600-300 mcg Tablet 1 tab PO QPM RF: 0 aspirin 325 mg Tablet 325 mg PO DAILY RF: 0 Discontinued diltiazem HCl [Cardizem] 60 mg tablet 60 mg PO Q8H 30 Days Qty: 90 RF: 0 Discharge Orders: Discharge Order (Routine); Ordered 09/12/20 Ordered By: Todd Mcginnis Admission Data Admit Date/Time: 09/10/20 12:14 Attending Provider: Todd Mcginnis Admit Provider: Todd Mcginnis Primary Care Provider: Maye Gomez Other Providers: Sharlene Charles
== END 2020-09-12 12:07 | disposition home or self-care (01) | DRG 455 ==
LOC: ASU 07:31 → 3N 12:14